=== PATIENT | female | born 1950 | race Caucasian/White ===

== ENCOUNTER 2025-01-23 08:30 | Day surgery (SDC) | payer MEDICARE, BC ==
[~2025-01-23] VITALS: Ht 160 cm; Wt 42.0 kg
[2025-01-23] VITALS (9 sets, daily range): BP systolic 102–137; BP diastolic 51–73; PULSE 71–90; RESP 13–29; TEMP 99.1; O2SAT 97–100
[~2025-01-23 08:30] MED LIST: CALCIUM + D; NIACIN; PRE; PRENATAL VITAMIN; PROBIOTIC
[2025-01-23] MEDS ORDERED: LIDOcaine 2% Viscous 15ml cup ONE (11:59)
[2025-01-23] MEDS ORDERED: propofol inj 20 ML IV ONE (16:08)
--- NOTE | 2025-01-26 10:31 | PATHOLOGY REPORT ---
[facility] [address] [place] [address] SURGICAL PATHOLOGY REPORT CaseNumber: [id number] Surgeon:Miguel De La Rosa M.D. CLINICAL INFORMATION CLINICAL INFORMATION: Not provided. DIAGNOSIS DIAGNOSIS: GASTRIC ANTRUM, BIOPSIES X 2 - NO SIGNIFICANT INFLAMMATION, EDEMA, OR VASCULAR CONGESTION - NO INTESTINAL METAPLASIA - NO DYSPLASIA OR MALIGNANCY - NO H. PYLORI ORGANISMS BY IMMUNOHISTOCHEMISTRY MICROSCOPIC DESCRIPTION MICROSCOPIC DESCRIPTION: Reviewed is a single H&E-stained slide showing serial sections and levels of two small fragments of gastric antral-type mucosa there is no significant inflammation, edema, or vascular congestion. There is no intestinal metaplasia. There are no dysplastic or neoplastic features. Also, no H. pylori organisms are highlighted by immunohistochemistry. GROSS DESCRIPTION GROSS DESCRIPTION: Received in a container of formalin labeled with the patient's name, number, and "antrum BX" are two pieces of [place]yusuf tissue 0.3 and 0.4 cm. The specimen is entirely submitted as A1. The time at which the specimen was removed was 1622. The time at which the specimen was placed in [facility] was 162. Electronically signed by: Navarro Priest M.D. 01/26/2025 9:50:00 AM
== END 2025-01-23 17:39 | disposition home or self-care (01) ==
LOC: OR 08:30
PROVIDERS: ATTEND Internal Medicine Gastroenterology
DX: K30 Functional dyspepsia (principal); K21.9 Gastro-esophageal reflux disease without esophagitis; K25.9 Gastric ulcer, unspecified as acute or chronic, without hemorrhage or perforation; K31.89 Other diseases of stomach and duodenum; E78.00 Pure hypercholesterolemia, unspecified; I34.1 Nonrheumatic mitral (valve) prolapse; M81.0 Age-related osteoporosis without current pathological fracture; N18.9 Chronic kidney disease, unspecified; Z88.8 Allergy status to other drugs, medicaments and biological substances
CPT/HCPCS: 43239; A4615; A4620; J2704; J7120; Z7512; Z7610; 88305; 88342; 99152; 99153